=== PATIENT | female | born 1990 | race Caucasian/White ===

== ENCOUNTER 2017-10-24 21:13 | Emergency (ER) | payer MEDICAID ==
[~2017-10-24] VITALS: Ht 154.9 cm; Wt 63.3 kg
[2017-10-24 21:22] VITALS: BP 119/66
--- NOTE | 2017-10-24 21:29 | NUR ---
PT TAKEN TO BED 12 Addendum: 10/24/17 at 2209 by NITINO PT TAKEN TO BED 11
--- NOTE | 2017-10-24 21:30 | NUR ---
27/F CAME IN W C/O 04/03 LLQ PAIN RADIATING TO LOWER MIDABD PAIN, CONSTANT, ACUTE ONSET X 2 DAYS. BS ACTIVE X4, ABD SOFT, ROUND, +TENDERNESS TO LOWER ABD. DENIES FEVER/CHILLS, N/V, REPORTS DIARRHEA X2, DENIES HEMATURIA/DYSURIA. PMH: LEFT OVARIAN CYST, DENIES RX/OTC
[2017-10-24 22:32] VITALS: BP 107/65
--- NOTE | 2017-10-24 22:32 | NUR ---
Patient discharged with v/s stable. Written and verbal after care instructions given and explained. Patient alert, oriented and verbalized understanding of instructions. Ambulatory with steady gait. All questions addressed prior to discharge. ID band removed. Patient advised to follow up with PMD. Rx of NORCO AND IBUPROFEN given. Patient educated on indication of medication including possible reaction and side effects. Opportunity to ask questions provided and answered.
== END 2017-10-24 22:32 | disposition home or self-care (01) ==
LOC: MED 21:13
DX: N83.202 Unspecified ovarian cyst, left side (principal)
CPT/HCPCS: 81002; 81025; 99283